=== PATIENT | female | born 1950 | race Asian ===

== ENCOUNTER → 2024-10-13 | Outpatient (REF) | payer MEDICARE | LOC: MAMMO 12:58 | PROVIDERS: ATTEND Internal Medicine | DX: Z12.31 Encounter for screening mammogram for malignant neoplasm of breast (principal); Z13.820 Encounter for screening for osteoporosis | CPT/HCPCS: 77067; 77080 ==

== ENCOUNTER → 2025-01-19 | Outpatient (REF) | payer MEDICARE | LOC: DX 08:22 | PROVIDERS: ATTEND Internal Medicine | DX: R13.19 Other dysphagia (principal) | CPT/HCPCS: 74220 ==